=== PATIENT | male | born 1935 | race Caucasian/White ===

== ENCOUNTER → 2018-10-24 | Outpatient (REF) | payer MEDICARE ==
[~2018-10-24] MED LIST: ASPIRIN EC81 MG PO; BISOPROL FUM5 MG PO; CO Q 10100 MG PO; COZAAR100 MG OR; CRESTOR5 MG PO; LIPITOR20 MG OR; LORTAB5 PO; MUCINEX DM1 TA1 PO; NEXIUM40 M1 OR; NORVASC PO; OMEPRAZOLE40 MG PO; ROCALTROL0.25 MCG; SERTRALINE25 MG PO; TRAMADOL HCL50 MG PO; VITAMIN D32000 UNIT PO; VYTORIN 10/201 TAB OR; XARELTO10 MG PO
[2018-10-24 16:15] LABS: CREATININE 2.2 mg/dL (0.7-1.3); POTASSIUM 4.7 mmol/l (3.5-5.1)
== END | disposition home or self-care (01) ==
LOC: LAB 15:21
PROVIDERS: ATTEND Internal Medicine
DX: N18.3 Chronic kidney disease, stage 3 (moderate) (principal)